=== PATIENT | female | born 1980 | race Caucasian/White ===

== ENCOUNTER 2019-02-07 07:28 | Inpatient (IN) | payer OTHER ==
[~2019-02-07] VITALS: Ht 152.4 cm; Wt 82.6 kg
[2019-02-07] MEDS ORDERED: SODIUM CHLORIDE 0.9% 1,000 ML IV ONE ×2 (07:45→08:33)
[2019-02-07 08:02] LABS: EOSINOPHILS % 2.8 % (0.0-5.0); HEMATOCRIT. 41.7 % (36.0-48.0); HEMOGLOBIN. 13.9 g/dL (12.0-16.0); LYMPHOCYTES % 36.8 % (20.0-50.0); MEAN CORPUSCULAR HEMOGLOBIN 30.2 pg (28.0-32.0); MEAN CORPUSCULAR VOLUME 90.7 fL (81.0-99.0); MEAN PLATELET VOLUME 9.7 fl (7.4-10.4); NEUTROPHILS % 50.4 % (40.0-76.0); PLATELET 274 x1000/uL (130-400); RED CELL DISTRIBUTION WIDTH 13.5 % (11.6-14.6)
[2019-02-07 08:08] LABS: CHLORIDE 110 mEq/L (98-107); CLARITY URINE CLEAR (CLEAR); COLOR URINE YELLOW (YELLOW); KETONES URINE NEGATIVE (NEGATIVE); LEUKOCYTE ESTERASE URINE NEGATIVE (NEGATIVE); NITRITE URINE NEGATIVE (NEGATIVE); OCCULT BLOOD URINE TRACE (NEGATIVE); PH URINE 5.5 (4.5-8.0); PROTEIN URINE NEGATIVE (NEGATIVE); SPECIFIC GRAVITY URINE 1.006 (1.005-1.030); UROBILINOGEN URINE 0.2 E.U./dL (0.2-1.0)
[2019-02-07 08:11] LABS: PROTHROMBIN TIME 10.3 sec (9.1-11.1)
[2019-02-07 08:12] LABS: ETHANOL BLOOD < 10 mg/dL
[2019-02-07 08:15] LABS: LDL CHOLESTEROL 148 mg/dL (5-100)
[2019-02-07 08:16] LABS: CREATINE KINASE 96 IU/L (26-192)
[2019-02-07 08:21] LABS: HCG SCREEN NEGATIVE
[2019-02-07 08:22] LABS: *AMPHETAMINES SCREEN URINE NEGATIVE (NEGATIVE); *BARBITURATES SCREEN URINE NEGATIVE (NEGATIVE); *BENZODIAZEPINES SCREEN URINE NEGATIVE (NEGATIVE); *COCAINE SCREEN URINE NEGATIVE (NEGATIVE)
[2019-02-07 08:23] LABS: METHADONE URINE SCREEN NEGATIVE (NEGATIVE); OPIATES URINE SCREEN NEGATIVE (NEGATIVE); PHENCYCLIDINE URINE SCREEN NEGATIVE (NEGATIVE)
[2019-02-07 08:36] LABS: CANNABINOID URINE SCREEN PRESUMTIVE POSITIVE (NEGATIVE)
[2019-02-07] MEDS ORDERED: ASPIRIN 325MG EC TABLET PO ONE (08:45)
[2019-02-07] MEDS ORDERED: MECLIZINE 25MG TABLET PO ONE (08:45)
[2019-02-07] MEDS ORDERED: POTASSIUM CHLORIDE 20MEQ TABLET SR PO ONE (08:45)
[2019-02-07 12:00] VITALS: BP 103/41
[2019-02-07] MEDS ORDERED: IOHEXOL-350 100 ML BOTTLE ONE (12:04)
[2019-02-07 12:15] VITALS: BP 103/41
[2019-02-07] MEDS ORDERED: KETOROLAC 15MG/ML VIAL IV PRN (13:00)
[2019-02-07] MEDS ORDERED: ACETAMINOPHEN 325MG TABLET PO PRN (13:00)
[2019-02-07] MEDS ORDERED: ONDANSETRON HCL 4MG/2ML INJ IV PRN (13:00)
[2019-02-07] MEDS ORDERED: GUAIFENESIN 200MG/10ML SUGAR FREE UDC PO PRN (13:00)
[2019-02-07] MEDS ORDERED: IPRATROPIUM/ALBUTEROL 0.5-3(2.5)MG/3ML NEB INH PRN (13:00)
[2019-02-07] MEDS ORDERED: CLONIDINE 0.1MG TABLET PO PRN (13:00)
[2019-02-07] MEDS ORDERED: ENOXAPARIN 40MG/0.4ML SYR SUBCUT SCH (13:00)
[2019-02-07] MEDS ORDERED: MAGNESIUM/ALUMINUM HYDROXIDE/SIMETHICONE 30ML UDC PO PRN (13:00)
[2019-02-07 16:00] VITALS: BP 93/41
[2019-02-07] MEDS: SODIUM CHLORIDE 0.9% 1,000 ML IV SCH (16:29)
[2019-02-07 20:00] VITALS: BP 94/52
[2019-02-07] MEDS: FAMOTIDINE 20MG TABLET PO SCH (20:48)
[2019-02-07] MEDS ORDERED: ZOLPIDEM TARTRATE 5MG TABLET PO PRN (21:00)
[2019-02-08 00:13] VITALS: BP 121/57
[2019-02-08] MEDS: SODIUM CHLORIDE 0.9% 1,000 ML IV SCH ×2 (03:32→09:01)
[2019-02-08 04:00] VITALS: BP 103/55
[2019-02-08 08:00] VITALS: BP 100/49
[2019-02-08] MEDS ORDERED: ASPIRIN 325MG EC TABLET PO SCH (09:00)
[2019-02-08] MEDS: FAMOTIDINE 20MG TABLET PO SCH (09:01)
[2019-02-08 10:25] VITALS: BP 100/49
[2019-02-08 12:00] VITALS: BP 97/36
[2019-02-08 13:10] LABS: *BARBITURATES SCREEN URINE NEGATIVE (NEGATIVE)
[2019-02-08 13:11] LABS: *AMPHETAMINES SCREEN URINE NEGATIVE (NEGATIVE); *BENZODIAZEPINES SCREEN URINE NEGATIVE (NEGATIVE); *COCAINE SCREEN URINE NEGATIVE (NEGATIVE); METHADONE URINE SCREEN NEGATIVE (NEGATIVE); OPIATES URINE SCREEN NEGATIVE (NEGATIVE); PHENCYCLIDINE URINE SCREEN NEGATIVE (NEGATIVE)
[2019-02-08 13:30] LABS: CANNABINOID URINE SCREEN PRESUMTIVE POSITIVE (NEGATIVE)
== END 2019-02-08 12:49 | disposition home or self-care (01) | DRG 47 ==
LOC: ER 07:28 → 7WST 09:17 → EDBEDREQSVC 09:20 → EDBEDREQ 09:20 → ENRESERV 10:04
PROVIDERS: ADMIT Internal Medicine; ATTEND Internal Medicine
DX: G45.9 Transient cerebral ischemic attack, unspecified (principal); E87.5 Hyperkalemia; E78.00 Pure hypercholesterolemia, unspecified; E87.6 Hypokalemia; F12.10 Cannabis abuse, uncomplicated; R29.700 NIHSS score 0
CPT/HCPCS: 36415; 70496; 70498; 70551; 71045; 80061; 80305; 80320; 82550; 82962; 83036; 83721; 83735; 83880; 84484; 84703; 93005; 96360; 96361; 99291; J1650; J7030; J8597; Q9967; G0480